=== PATIENT | male | born 1950 | race Two or more races ===

== ENCOUNTER → 2024-04-14 | Outpatient (CLI) | payer OTHER, MEDICAID, SELFPAY ==
--- NOTE | 2024-04-14 10:57 | XR_ITS ---
Examination: Knee, right , 3 views Technique: Knee AP, lateral, oblique 3 views Date and time of exam: April 14, 2024 1121 hours INDICATIONS: Knee pain beginning 6 months ago. FINDINGS: Moderate osteopenia Moderate narrowing medial joint space Mild osteoarthritis patellofemoral joint No fracture IMPRESSION: Moderate narrowing medial joint space
== END | disposition home or self-care (01) ==
PROVIDERS: PCP Nurse Practitioner Family; Referring Provider Nurse Practitioner Family; Visit Provider Nurse Practitioner Family
DX: M25.861 Other specified joint disorders, right knee (principal)
CPT/HCPCS: 73562